=== PATIENT | male | born 1970 | race Two or more races ===

== ENCOUNTER 2024-09-20 18:34 | Inpatient (IN) | payer OTHER ==
[2024-09-20 19:18] VITALS: BMI 23.8
[2024-09-20] MEDS ORDERED: IBUPROFEN 400 MG TABLET (FP) PO PRN (21:08)
[2024-09-20] MEDS ORDERED: BENZONATATE 200 MG CAPSULE PO PRN (21:08)
[2024-09-20] MEDS ORDERED: BENZOCAINE/MENTHOL (CHLORASEPTIC ) LOZENGE MM PRN (21:08)
[2024-09-20] MEDS ORDERED: guaiFENesin 600 MG TABLET.ER (FP) PO PRN (21:08)
[2024-09-20] MEDS ORDERED: POLYETHYLENE GLYCOL (HEALTHYLAX) 3350 17 GM PACKET PO PRN (21:08)
[2024-09-20] MEDS ORDERED: NALOXONE (NARCAN) HCL 4 MG/0.1 ML SPRAY NS PRN (21:08)
[2024-09-20] MEDS ORDERED: BISMUTH SUBSALICYLATE 524 MG/30 ML PO PRN (21:08)
[2024-09-20] MEDS ORDERED: MAG HYDROX/AL HYDROX/SIMETH 30 ML UNIT-DOSE CUP PO PRN (21:08)
[2024-09-20] MEDS ORDERED: ACETAMINOPHEN 325 MG TABLET (FP) PO PRN (21:08)
[2024-09-20] MEDS ORDERED: IBUPROFEN 600 MG TABLET (FP) PO PRN (21:08)
[2024-09-20] MEDS ORDERED: ONDANSETRON *ODT* 4 MG TABLET SL PRN (21:08)
[2024-09-20] MEDS ORDERED: LOPERAMIDE HCL 2 MG CAPSULE PO PRN (21:08)
[2024-09-20] MEDS ORDERED: DICYCLOMINE HCL 10 MG CAPSULE PO PRN (21:08)
[2024-09-20] MEDS ORDERED: methaDONE HCL 10 MG TABLET (FOR DETOX USE ONLY) PO PRN (21:10)
[2024-09-20] MEDS ORDERED: methaDONE HCL 10 MG TABLET (FOR DETOX USE ONLY) ONE (22:58)
[2024-09-20] MEDS ORDERED: MELATONIN 5 MG TABLETS ONE (22:58)
[2024-09-20] MEDS: MELATONIN 5 MG TABLETS PO SCH (23:03)
[2024-09-20] MEDS: THIAMINE 100 MG TABLET PO SCH (23:03)
[2024-09-20] MEDS: methaDONE HCL 10 MG TABLET (FOR DETOX USE ONLY) PO ONE (23:03)
[2024-09-21] MEDS: PRENATAL VITAMINS W/ FOLIC ACID TABLET (FP) PO SCH (09:59)
[2024-09-21] MEDS: METHOCARBAMOL 500 MG TABLET PO PRN (09:59)
[2024-09-21 11:16] LABS: CHLORIDE 102 mmol/L (98-107); POTASSIUM 3.8 mmol/L (3.5-5.1); SODIUM 139 mmol/L (136-145)
[2024-09-21 11:19] LABS: HEMOGLOBIN 12.7 g/dL (13.7-17.5); MCHC 31.8 g/dl (32.3-36.5); MEAN CELL VOLUME 87.5 fl (79.0-92.2); PLATELET COUNT 254 x10^3/uL (163-337); RDW 11.9 % (12.2-16.1)
[2024-09-21 11:28] LABS: ANION GAP 11 mmol/L (4-13); CO2 25 mmol/L (21-32); GLUCOSE,RANDOM 104 mg/dL (74-106)
[2024-09-21 11:29] LABS: CALCIUM 9.2 mg/dL (8.5-10.1)
[2024-09-21 11:31] LABS: SGOT/AST 27 U/L (15-37)
[2024-09-21 11:32] LABS: BILIRUBIN,TOTAL 0.7 mg/dL (0.2-1); TOT PROT 7.5 g/dl (6.4-8.2)
[2024-09-21 11:33] LABS: ALK PHOS 73 U/L (45-117)
[2024-09-21 11:34] LABS: SGPT/ALT 19 U/L (13-61)
[2024-09-21] MEDS: cloNIDine HCL 0.1 MG TABLET PO PRN (22:31)
[2024-09-21] MEDS: ALBUTEROL SO4 HFA INHALER IH PRN (22:48)
[2024-09-22] MEDS: methaDONE HCL 10 MG TABLET (FOR DETOX USE ONLY) PO ONE (09:17)
[2024-09-22] MEDS: MAGNESIUM HYDROX 2400MG/30ML ORAL SUSPENSION 30 ML CUP PO PRN (18:25)
[2024-09-22] MEDS: hydrOXYzine PAMOATE 25 MG CAPSULE (FP) PO PRN (22:03)
[2024-09-23 11:32] LABS: HEMATOCRIT 43.1 % (40.1-51.0); HEMOGLOBIN 13.4 g/dL (13.7-17.5); MCHC 31.1 g/dl (32.3-36.5); MEAN CELL VOLUME 89.6 fl (79.0-92.2); MEAN PLT VOLUME 9.7 fl (9.4-12.4); PLATELET COUNT 239 x10^3/uL (163-337); RDW 11.6 % (12.2-16.1)
[2024-09-24] MEDS: methaDONE HCL 10 MG TABLET (FOR DETOX USE ONLY) PO ONE (10:28)
[2024-09-24 11:44] LABS: URINE APPEARANCE CLEAR; URINE BILIRUBIN NEGATIVE (NEGATIVE); URINE COLOR YELLOW; URINE GLUCOSE (UA) NEGATIVE (NEGATIVE); URINE KETONE NEGATIVE (NEGATIVE); URINE LEUK ESTERASE NEGATIVE (NEGATIVE); URINE NITRITE NEGATIVE (NEGATIVE); URINE PROTEIN NEGATIVE (NEGATIVE); URINE UROBILINOGEN 0.2 mg/dL (0.2-1.0)
[2024-09-24 16:41] VITALS: RESP 16
[2024-09-25 08:57] VITALS: BP 109/81; PULSE 87; TEMP 98.2
== END 2024-09-25 09:57 | disposition home or self-care (01) | DRG 897 ==
LOC: YASAS 18:34 → Y3N 22:48
PROVIDERS: ADMIT Allergy & Immunology; ATTEND Allergy & Immunology
PROC: HZ2ZZZZ Detoxification Services for Substance Abuse Treatment (ICD-10-PCS; principal; 2024-09-20)
DX: F11.23 Opioid dependence with withdrawal (principal); F14.20 Cocaine dependence, uncomplicated; F12.20 Cannabis dependence, uncomplicated; F17.210 Nicotine dependence, cigarettes, uncomplicated; D72.829 Elevated white blood cell count, unspecified; I10 Essential (primary) hypertension; J45.909 Unspecified asthma, uncomplicated; Z88.0 Allergy status to penicillin
CPT/HCPCS: 0241U-QW; 36415; 80053; 80305; 80307; 81003; 85027; 86780; 93005; 93010